=== PATIENT | female | born 1985 | race Caucasian/White ===

== ENCOUNTER 2017-02-05 21:19 | Emergency (ER) | payer OTHER ==
[~2017-02-05] VITALS: Ht 157.5 cm; Wt 105.0 kg
[~2017-02-05 21:19] MED LIST: ASPI-986; IBUP200C48; PENI250T2
[2017-02-06 00:14] VITALS: BP 124/72
== END 2017-02-06 01:27 | disposition home or self-care (01) ==
LOC: EDSEX 21:19 → ER 02-06 00:27
DX: T63.441A Toxic effect of venom of bees, accidental (unintentional), initial encounter (principal); L03.114 Cellulitis of left upper limb; Y92.89 Other specified places as the place of occurrence of the external cause; R03.0 Elevated blood-pressure reading, without diagnosis of hypertension; Z88.0 Allergy status to penicillin; Z88.1 Allergy status to other antibiotic agents; Z79.82 Long term (current) use of aspirin
CPT/HCPCS: 99283; Z7610